=== PATIENT | female | born 1995 | race African-American/Black ===

== ENCOUNTER 2018-06-18 17:31 | Observation (INO) | payer OTHER | END 2018-06-18 18:13 | disposition home or self-care (01) | LOC: 8 EST LDRP 17:31 | PROVIDERS: ADMIT Specialist; ATTEND Specialist | DX: O26.892 Other specified pregnancy related conditions, second trimester (principal); R10.9 Unspecified abdominal pain; Z3A.19 19 weeks gestation of pregnancy | CPT/HCPCS: G0378 ==

== ENCOUNTER 2018-06-18 18:10 | Emergency (ER) | payer OTHER ==
[~2018-06-18] VITALS: Ht 172.7 cm; Wt 86.0 kg
[2018-06-18] MEDS ORDERED: ACETAMINOPHEN 325MG TABLET PO ONE (19:30)
[2018-06-18] MEDS ORDERED: TETANUS, DIPHTHERIA, PERTUSSIS VAC/PF 0.5ML (>7YR OLD) IM ONE (19:30)
[2018-06-18] MEDS ORDERED: ACETAMINOPHEN 500MG TABLET PO NR (19:45)
[2018-06-19 00:04] VITALS: BP 105/59
== END 2018-06-19 00:07 | disposition home or self-care (01) ==
LOC: ER 18:10
DX: O99.89 Other specified diseases and conditions complicating pregnancy, childbirth and the puerperium (principal); S80.212A Abrasion, left knee, initial encounter; S80.211A Abrasion, right knee, initial encounter; O26.892 Other specified pregnancy related conditions, second trimester; R10.9 Unspecified abdominal pain; Z3A.19 19 weeks gestation of pregnancy; X58.XXXA Exposure to other specified factors, initial encounter; Y93.89 Activity, other specified; Y92.89 Other specified places as the place of occurrence of the external cause; Y99.8 Other external cause status
CPT/HCPCS: 76805; 99284; Z7610; 90715